=== PATIENT | male | born 1960 | race Asian ===

== ENCOUNTER 2019-12-06 21:37 | Emergency (ER) | payer OTHER ==
[2019-12-06 21:53] VITALS: BP 163/90
--- NOTE | 2019-12-06 22:06 | UC ---
Cardiac HPI - HPI Summary HPI Summary: 59-year-old male comes in with a chief complaint of chest pain. Last 2 days he' s been having intermittent left-sided chest pain. Describes it as a pressure 4- 5 out of 10. Duration is approximately 1 minute per episode. He feels lightheaded during the chest pain. Denies any palpitations. Does occasionally feel left shoulder pain but he states is not when he feels the anterior chest pain. He does have a brother who is has a cardiac history. Patient does not have diabetes. Denies any cough chest congestion nausea or shortness of breath. He did have stress test but he reports was about 20 years ago. No known cardiac history. No calf pain or pedal edema. Patient did take one aspirin at home prior to arrival. - History of Current Complaint Chief Complaint: UCChestPain Stated Complaint: CHEST PAIN Time Seen by Provider: 12/06/19 21:40 Pain Intensity: 2 - Allergy/Home Medications Allergies/Adverse Reactions: Allergies Allergy/AdvReac Type Severity Reaction Status Date / Time No Known Allergies Allergy Verified 12/06/19 21:49 Home Medications: Home Medications NK [No Home Medications Reported] 06/15/18 [History Confirmed 12/06/19] PMH/Surg Hx/FS Hx/Imm Hx Previously Healthy: Yes - Surgical History Surgical History: None - Family History Known Family History: Positive: Cardiac Disease - Social History Alcohol Use: Occasionally Substance Use Type: None Smoking Status (MU): Never Smoked Tobacco Review of Systems All Other Systems Reviewed And Are Negative: Yes Constitutional: Positive: Other - SEE HPI Skin: Positive: Negative Eyes: Positive: Negative ENT: Positive: Negative Respiratory: Positive: Negative Cardiovascular: Positive: Chest Pain Gastrointestinal: Positive: Negative Motor: Positive: Negative Neurovascular: Positive: Negative Musculoskeletal: Positive: Negative Neurological/Mental Status: Positive: Negative Psychological: Positive: Negative Is Patient Immunocompromised?: No Physical Exam Triage Information Reviewed: Yes Appearance: Well-Appearing, No Pain Distress, Well-Nourished Vital Signs: Initial Vital Signs Temp 97.6 F 12/06/19 21:49 Pulse 58 12/06/19 21:49 Resp 18 12/06/19 21:49 BP 163/90 12/06/19 21:49 Pulse Ox 96 12/06/19 21:49 Vital Signs Reviewed: Yes Eye Exam: Normal Eyes: Positive: Conjunctiva Clear Neck: Positive: Supple Respiratory: Positive: Lungs clear, Normal breath sounds, No respiratory distress Cardiovascular: Positive: RRR Musculoskeletal: Positive: Strength Intact, ROM Intact, No Edema - No calf tenderness to palpation. Neurological: Positive: Alert Psychological: Positive: Age Appropriate Behavior Skin Exam: Normal - Assessment/Plan Course Of Treatment: I discussed the EKG and vital signs with the patient and his . I did not see any ischemic changes or dysrhythmia on the EKG. I Recommended further evaluation in the emergency department now. Patient declined transport by ambulance. Patient left with his by POV. - Clinical Impression Provider Diagnosis: Chest pain, Lightheadedness Discharge ED - Sign-Out/Discharge Documenting (check all that apply): Patient Departure All imaging exams completed and their final reports reviewed: No Studies - Discharge Plan Condition: Stable Disposition: HOME-RECOMMEND TO ED Patient Education Materials: Chest Pain (ED), Lightheadedness (ED) Referrals: Chilango Shine MD [Primary Care Provider] - Additional Instructions: GO DIRECTLY TO THE EMERGENCY DEPARTMENT FOR FURTHER EVALUATION OF YOUR CHEST PAIN AND LIGHTHEADEDNESS. - Billing Disposition and Condition Condition: STABLE Disposition: Home-Recommend to ED
== END 2019-12-06 22:13 | disposition home health service (06) ==
LOC: UCEAST 21:37
DX: R07.89 Other chest pain (principal); R42 Dizziness and giddiness; R00.1 Bradycardia, unspecified
CPT/HCPCS: 93005; 99212; G0463